=== PATIENT | female | born 1965 | race Caucasian/White ===

== ENCOUNTER 2019-10-11 13:01 | Emergency (ER) | payer MEDICAID ==
[~2019-10-11] VITALS: Ht 165.1 cm; Wt 82.7 kg
[2019-10-11] MEDS ORDERED: GABA-531 PO (13:35)
[2019-10-11 15:27] VITALS: BP 153/97
[2019-10-11] MEDS: DEXAMETHASONE 4 MG TABLET PO ONE (16:14)
== END 2019-10-11 16:17 | disposition home or self-care (01) ==
LOC: EMS 13:03
DX: J02.8 Acute pharyngitis due to other specified organisms (principal); B97.89 Other viral agents as the cause of diseases classified elsewhere; Z98.51 Tubal ligation status; Z88.0 Allergy status to penicillin; Z88.5 Allergy status to narcotic agent; Z88.8 Allergy status to other drugs, medicaments and biological substances
CPT/HCPCS: 87430; 99283; J8540

== ENCOUNTER 2020-10-21 12:05 | Emergency (ER) | payer MEDICAID, OTHER ==
[~2020-10-21] VITALS: Ht 165.1 cm; Wt 68.2 kg
[~2020-10-21 12:05] MED LIST: GABA-1181 PO
[2020-10-21 12:22] VITALS: BP 147/82
[2020-10-21] MEDS ORDERED: L.AC1CAP6 PO (12:30)
[2020-10-21] MEDS ORDERED: POTA8CAP20 PO (12:30)
== END 2020-10-21 13:16 | disposition home or self-care (01) ==
LOC: EMS 12:10
DX: J32.9 Chronic sinusitis, unspecified (principal); Z20.822 Contact with and (suspected) exposure to COVID-19
CPT/HCPCS: 99283; U0003